=== PATIENT | female | born 1950 ===

== ENCOUNTER 2018-11-21 14:36 | Emergency (ER) | payer MEDICARE, MEDICAID ==
--- NOTE | 2018-11-21 16:08 | C.PDOC ---
History Of Present Illness 68-year-old female presents to the ED for evaluation of right sided posterior thoracic pain that is digitally and positionally reproducible. Patient states that the pain began after she fell forward while walking her dog around three days ago. She also reports a small area of bruising underneath her left eye. She denies loss of consciousness, nausea, vomiting, shortness of breath, cough, or extremity numbness or weakness at this time. Time Seen by Provider: 11/21/18 16:01 Chief Complaint (Nursing): Back Pain History Per: Patient History/Exam Limitations: no limitations Onset/Duration Of Symptoms: Days (3) Current Symptoms Are (Timing): Still Present Quality Of Discomfort: "Pain" Associated Symptoms: denies: New Weakness, New Numbness Additional History Per: Patient Past Medical History Reviewed: Historical Data, Nursing Documentation, Vital Signs Vital Signs: Last Vital Signs Temp 97.9 F 11/21/18 14:54 Pulse 80 11/21/18 14:54 Resp 20 11/21/18 14:54 BP 170/84 H 11/21/18 14:54 Pulse Ox 94 L 11/21/18 14:54 - Medical History PMH: Anxiety, Depression, HTN Surgical History: No Surg Hx Family History: States: Unknown Family Hx - Social History Hx Alcohol Use: No Hx Substance Use: No - Immunization History Hx Tetanus Toxoid Vaccination: Yes Hx Influenza Vaccination: Yes Hx Pneumococcal Vaccination: Yes Review Of Systems Gastrointestinal: Negative for: Nausea, Vomiting Musculoskeletal: Positive for: Other (right posterior thoracic pain ) Skin: Positive for: Bruising (under left eye ) Neurological: Negative for: Weakness, Numbness, Other (LOC) Physical Exam - Physical Exam Appears: Non-toxic, No Acute Distress Skin: Warm, Dry, Ecchymosis (small area, underneath left eye ) Head: Normacephalic Eye(s): bilateral: Normal Inspection Oral Mucosa: Moist Neck: Supple Chest: Symmetrical, No Deformity, Tenderness (to right infrascapular area), No Ecchymosis Cardiovascular: Rhythm Regular, No Murmur Respiratory: Normal Breath Sounds, No Rales, No Rhonchi, No Wheezing Extremity: Normal ROM, Capillary Refill (less than 2 seconds ) Neurological/Psych: Oriented x3, Normal Speech, Normal Cognition Gait: Steady ED Course And Treatment O2 Sat by Pulse Oximetry: 94 (on RA) Pulse Ox Interpretation: Normal Progress Note: Motrin PO given. Medical Decision Making Medical Decision Making: R posterior rib costochondritis no fall but fell walking her dog 3 days ago ice/NSAIDS educated Disposition Doctor Will See Patient In The: Office Counseled Patient/Family Regarding: Studies Performed, Diagnosis - Disposition Referrals: Shaik Yeung MD [Staff Provider] - Disposition: HOME/ ROUTINE Disposition Time: 16:07 Condition: GOOD Additional Instructions: [place] hielo 1/2 hora por hora, nada caliente ibuprofeno/Advil/Motrin 600 mg cada 6 horas stewart necessario No levanta nada pesada por 1 semana Instructions: Costochondritis (DC) Forms: [employer] (Filipino) Print Language: MALTESE - Clinical Impression Clinical Impression: Acute costochondritis - Scribe Statement The provider has reviewed the documentation as recorded by the Scribe (Argelia Kowalski) Provider Attestation: All medical record entries made by the Scribe were at my direction and per sonally dictated by me. I have reviewed the chart and agree that the record accurately reflects my personal performance of the history, physical exam, medical decision making, and the department course for this patient. I have also personally directed, reviewed, and agree with the discharge instructions and disposition.
[2018-11-21 16:15] VITALS: BP 155/79; PULSE 66; RESP 18; TEMP 97.6
[2018-11-21 23:26] VITALS: O2SAT 94
== END 2018-11-21 16:15 | disposition home or self-care (01) ==
LOC: C.ER 14:36
DX: M94.0 Chondrocostal junction syndrome [Tietze] (principal)